=== PATIENT | male | born 1990 | race Caucasian/White ===

== ENCOUNTER 2019-05-15 18:44 | Emergency (ER) | payer BC ==
[2019-05-15] MEDS ORDERED: Lidocaine 2% with EPINEPHrine 1:100,000 20 ML MDV INFILT ONE (18:45)
[2019-05-15] MEDS ORDERED: Diphtheria,Pertussis(Acell),Tetanus Vaccine 0.5 ML SDV IM ONE (18:58)
--- NOTE | 2019-05-15 18:58 | EDM.PDOC ---
ED HPI GENERAL MEDICAL PROBLEM - General Chief Complaint: Laceration Stated Complaint: FELL AND HIT CHIN Time Seen by Provider: 05/15/19 18:55 Source of Information: Reports: Patient History Limitations: Reports: No Limitations - History of Present Illness INITIAL COMMENTS - FREE TEXT/NARRATIVE: 29-year-old male who reports that he was doing dishes at approximately 5 PM tonight and he slipped on water that was on the floor and fell striking his head on the wood floor but he also had knives in his hand and he cut his left chin with one of the knives. He had no loss of consciousness. There is no neck pain. There is no back pain. There was bleeding in the area of the cut and it is controlled with direct pressure. He reports mild pain in the area that he rates as 2/10. It is sharp and stinging. It is worse with palpation. He also reports that he had a headache prior to fall and he had taken some ibuprofen for that. There are no other associated signs or symptoms. There are no other modifying factors. Onset: Today Duration: Constant Location: Reports: Face (Left chin) Quality: Reports: Sharp (And stinging) Severity: Mild Improves with: Reports: Rest Worsens with: Reports: Other (Palpation) Context: Reports: Trauma Associated Symptoms: Reports: No Other Symptoms Treatments [employer]: Reports: Other (see below) (Nothing) chin/jaw Pain Score (Numeric/FACES): 4 - Related Data Allergies Allergy/AdvReac Type Severity Reaction Status Date / Time No Known Allergies Allergy Verified 05/15/19 18:58 Home Meds: Home Meds NK [No Known Home Meds] 05/15/19 [History] Past Medical History Neurological History: Reports: Other (See Below) Other Neuro History: 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 It is diffuse and is similar to previous headaches that he has had the past.) Hematologic/Lymphatic: Reports: No Symptoms Immunologic: Reports: Other (Greater than 5 years since his last tetanus immunization.) ED EXAM, SKIN/RASH Exam: See Below Exam Limited By: No Limitations General Appearance: Alert, WD/WN, Mild Distress Eye Exam: Bilateral Eye: EOMI, Normal Inspection, PERRL Ears: Normal External Exam, Hearing Grossly Normal Nose: Normal Inspection, Normal Mucosa, No Blood Throat/Mouth: Normal Oropharynx, Normal Voice, No Airway Compromise, Other ( Slight abrasion to the right lower lip. His teeth appear to be occluding normally for him.) Head: Normocephalic, Other (Some tenderness along the chin crepitus or bony deformity.) Neck: Normal Inspection, Supple, Non-Tender, Full Range of Motion Respiratory/Chest: No Respiratory Distress, Lungs Clear, Normal Breath Sounds, No Accessory Muscle Use, Chest Non-Tender Cardiovascular: Normal Peripheral Pulses, Regular Rate, Rhythm, No Murmur Peripheral Pulses: 2+: Radial (L), Radial (R) GI/Abdominal: Normal Bowel Sounds, Soft, Non-Tender Back Exam: Normal Inspection, Full Range of Motion Extremities: Normal Inspection, Normal Range of Motion, Non-Tender, No Pedal Edema, Normal Capillary Refill Neurological: Alert, Oriented, CN II-XII Intact, Normal Cognition, No Motor/ Sensory Deficits, Other (He has a baseline tremor that is chronic according to the patient.) Psychiatric: Normal Affect Skin: Warm, Dry, Normal Color, No Rash, Wound/Incision (Along the chin) Location, Skin: Face (Chin) Characteristics: Linear (It is 10 cm in length goes to the subcutaneous tissue.) Lymphatic: No Adenopathy ED SKIN PROCEDURES - Laceration/Wound Repair Left Lateral Face Appearance: Subcutaneous (Left lateral chin), Linear, Mildly Contaminated Distal NVT: Neuro & Vascular Intact Anesthetic Type: Local Local Anesthesia - Lidocaine (Xylocaine): 2% with EPI Local Anesthetic Volume: Other (7 mL. There was good anesthesia and no complications.) Skin Prep: Saline Saline Irrigation (cc's): 400 Exploration/Debridement/Repair: Wound Explored, No Foreign Material Found Closed with: Sutures Lac/Wound length In cm: 10 Suture Size: 5-0 # of Sutures: 12 Suture Type: Prolene, Running, Simple Drain Placement: No Sterile Dressing Applied: Nurse Tetanus Status Addressed: Yes (Patient was given a Tdap Immunization) Complications: No Course - Vital Signs Last Recorded V/S: Last Vital Signs Temp 36.7 C 05/15/19 18:45 Pulse 91 05/15/19 18:45 Resp 17 05/15/19 18:45 BP 152/99 H 05/15/19 18:45 Pulse Ox 100 05/15/19 18:45 - Orders/Labs/Meds Orders: Active Orders 24 hr Category Date Time Status Vaccines to be Administered [RC] PER UNIT ROUTINE Care 05/15/19 18:58 Active Meds: Medications Discontinued Medications Generic Name Dose Route Start Last Admin Trade Name Freq PRN Reason Stop Dose Admin Bacitracin 1 dose 05/15/19 19:31 05/15/19 19:37 Bacitracin Oint 1 Gm TOP 05/15/19 19:32 1 dose ONETIME ONE Administration Diphtheria/Tetanus/Acell Pertussis 0.5 ml 05/15/19 18:58 05/15/19 19:35 Adacel IM 05/15/19 18:59 0.5 ml .ONCE ONE Administration - Re-Assessments/Exams Free Text/Narrative Re-Assessment/Exam: 05/15/19 19:30: Left lower lip and chin laceration was repaired with 5-0 Prolene with a simple running suture. The patient tolerated this well and there were no apparent complications. Wound care instructions were given. A Tdap immunization was given up-to-date on his tetanus immunization status. Suture removal in 7 days. Departure - Departure Time of Disposition: 19:40 Disposition: Home, Self-Care 01 Condition: Good (Improved) Clinical Impression: Chin laceration Qualifiers: Encounter type: initial encounter Qualified Code(s): S01.81XA - Laceration without foreign body of other part of head, initial encounter Head contusion Qualifiers: Encounter type: initial encounter Contusion of head detail: other part of head Qualified Code(s): S00.83XA - Contusion of other part of head, initial encounter Fall from slipping on slippery surface Qualifiers: Encounter type: initial encounter Qualified Code(s): W01.0XXA - Fall on same level from slipping, tripping and stumbling without subsequent striking against object, initial encounter - Discharge Information Instructions: Facial or Scalp Contusion, [id number], Head Injury, Adult, Easy -to-Read, Facial Laceration, [id number], Sutured Wound Care, [id number] Referrals: PCP,None [Primary Care Provider] - Forms: ED Department Discharge Additional Instructions: You may get the wound wet today to wash all of the blood off of your face and. But after today do not get the wound wet for 3 days. After 3 days, you may get the wound wet but do not immerse the wound in water until the sutures are out. Suture removal in 7 days. You may take Tylenol and ibuprofen as needed for pain. Back to the emergency department for marked increase in pain, redness, any signs of infection or any other concerning sign or symptom. Sepsis Event Note - Evaluation Sepsis Screening Result: No Definite Risk - Focused Exam Vital Signs: Vital Signs Temp Pulse Resp BP Pulse Ox 05/15/19 18:45 36.7 C 91 17 152/99 H 100 Date Exam was Performed: 05/15/19 Time Exam was Performed: 19:48 - My Orders Last 24 Hours: My Active Orders 05/15/19 18:58 Vaccines to be Administered [RC] PER UNIT ROUTINE - Assessment/Plan Last 24 Hours: My Active Orders 05/15/19 18:58 Vaccines to be Administered [RC] PER UNIT ROUTINE
[2019-05-15] MEDS ORDERED: Bacitracin Oint 1 GM U/D Packet TOP ONE (19:31)
== END 2019-05-15 19:48 | disposition home or self-care (01) ==
LOC: FB.ED 18:44
DX: S01.81XA Laceration without foreign body of other part of head, initial encounter (principal); Z23 Encounter for immunization; W01.0XXA Fall on same level from slipping, tripping and stumbling without subsequent striking against object, initial encounter
CPT/HCPCS: 12015; 90471; 90715; 99282